=== PATIENT | female | born 1960 | race Caucasian/White ===

== ENCOUNTER → 2020-04-14 | Outpatient (CLI) | payer BC, OTHER ==
[~2020-04-14] MED LIST: LEVO25TA2 PO; THYR15TA PO
[2020-04-14 14:52] LABS: BASOPHILS % (AUTO) 0 % (0-1); EOSINOPHILS % (AUTO) 2 % (1-7); LYMPHOCYTES % (AUTO) 28 % (22-44); MEAN CORPUSCULAR HEMOGLOBIN 31.9 pg (27.0-34.8); MEAN CORPUSCULAR HGB CONC 33.3 g/dL (32.4-35.8); MONOCYTES % (AUTO) 8 % (2-9); NEUTROPHILS % (AUTO) 62 % (42-75); PLATELET COUNT 148 x10^3/uL (130-400); RED BLOOD COUNT 4.63 x10^6/uL (3.82-5.3); RED CELL DISTRIBUTION WIDTH 12.5 % (9.6-15.2)
[2020-04-14 14:54] LABS: MD NO
[2020-04-14 15:01] LABS: INTERNATIONAL NORMALIZED RATIO 0.96 (0.93-1.1); PROTHROMBIN TIME 10.2 Seconds (9.6-11.5)
[2020-04-14 15:02] LABS: CHLORIDE 107 mmol/L (98-107)
[2020-04-14 15:06] LABS: ALANINE AMINOTRANSFERASE 27 U/L (12-78); ALBUMIN 3.7 g/dL (3.4-5.0); ALKALINE PHOSPHATASE 87 U/L (45-117); ANION GAP 5 mmol/L (5-15); BILIRUBIN,TOTAL 0.5 mg/dL (0.2-1.0); CALCIUM 9.1 mg/dL (8.5-10.1); CREATININE 0.64 mg/dL (0.55-1.02); TOTAL PROTEIN 7.3 g/dL (6.4-8.2)
[2020-04-14 15:12] LABS: MICROSCOPIC AUTO
== END | disposition home or self-care (01) ==
LOC: STAR 13:07
PROVIDERS: ATTEND Orthopaedic Surgery Orthopaedic Surgery of the Spine
DX: Z01.818 Encounter for other preprocedural examination (principal); M48.02 Spinal stenosis, cervical region; I44.4 Left anterior fascicular block
CPT/HCPCS: 36415; 71046; 80053; 81001; 85025; 85610; 85730; 87086; 93005

== ENCOUNTER → 2020-04-17 | Outpatient (CLI) | payer BC | END | disposition home or self-care (01) | LOC: STAR 09:43 | PROVIDERS: ATTEND Anesthesiology | DX: Z01.812 Encounter for preprocedural laboratory examination (principal); Z20.828 Contact with and (suspected) exposure to other viral communicable diseases | CPT/HCPCS: 36415; 87635 ==

== ENCOUNTER 2020-04-22 07:50 | Inpatient (IN) | payer BC, OTHER ==
[~2020-04-22] VITALS: Ht 165.1 cm; Wt 82.4 kg
[~2020-04-22 07:50] MED LIST changes: +BACITRACIN 50,000 UNIT ONE; +BUPIVACAINE/PF 0.25% ONE; +EPINEPHRINE 1 MG/ML, 1ML ONE; +LIDOCAINE/PF 0.5% ,50ML ONE; +VANCOMYCIN 1,000 MG ONE
[2020-04-22] MEDS ORDERED: CHLORHEXIDINE 15 ML UDC ONE (08:41)
[2020-04-22] MEDS ORDERED: CHLORHEXIDINE 15 ML UDC MM ONE (09:00)
[2020-04-22] MEDS ORDERED: LACTATED RINGERS 1,000 ML IV SCH (09:00)
[2020-04-22] MEDS ORDERED: BUPIVACAINE/PF 0.25% ONE (09:49)
[2020-04-22] MEDS ORDERED: MIDAZOLAM 1 MG/ML, 2ML ONE (09:55)
[2020-04-22] MEDS ORDERED: PROPOFOL 50 ML ONE (09:56)
[2020-04-22] MEDS ORDERED: FENTANYL PF 250 MCG/5ML ONE (09:56)
[2020-04-22] MEDS ORDERED: SUCCINYLCHOLINE 20 MG/ML, 10ML ONE (10:24)
[2020-04-22] MEDS ORDERED: CEFAZOLIN 1,000 MG ONE (10:24)
[2020-04-22] MEDS ORDERED: ROCURONIUM 10 MG/ML,10ML ONE (10:24)
[2020-04-22] MEDS ORDERED: DEXAMETHASONE 4 MG/ML, 5ML ONE (10:24)
[2020-04-22] MEDS ORDERED: ONDANSETRON 2MG/ML, 2ML ONE (10:24)
[2020-04-22] MEDS ORDERED: PROPOFOL 100 ML ONE (10:57)
[2020-04-22] MEDS ORDERED: MEPERIDINE/PF 25MG/0.5ML IVPush PRN (12:30)
[2020-04-22] MEDS ORDERED: EPHEDRINE 50 MG/ML, 1ML IVPush PRN (12:30)
[2020-04-22] MEDS ORDERED: DIPHENHYDRAMINE 50 MG/ML, 1ML IVPush PRN ×2 (12:30→15:30)
[2020-04-22] MEDS ORDERED: ONDANSETRON 2MG/ML, 2ML IVPush PRN (12:30)
[2020-04-22] MEDS ORDERED: LABETALOL 5MG/ML, 20ML IV PRN (12:30)
[2020-04-22] MEDS ORDERED: PROMETHAZINE 12.5 MG SUPP PR PRN (12:30)
[2020-04-22] MEDS ORDERED: OXYcodone 5 MG/5 ML ORAL.SOL UDC PO PRN (12:30)
[2020-04-22] MEDS ORDERED: EPHEDRINE 50 MG/ML, 1ML IM PRN (12:30)
[2020-04-22] MEDS ORDERED: PROMETHAZINE 25 MG/ML, 1ML IVPush PRN (12:30)
[2020-04-22] MEDS ORDERED: HYDROmorphone 1 MG/ML, 1ML INJ IVPush PRN (12:30)
[2020-04-22] MEDS ORDERED: DIAZEPAM 5 MG/ML, 2ML IVPush PRN (12:30)
[2020-04-22] MEDS ORDERED: FENTANYL PF 100 MCG/2ML ONE (13:06)
[2020-04-22] MEDS ORDERED: OXYcodone 5 MG/5 ML ORAL.SOL UDC ONE (13:06)
[2020-04-22] MEDS ORDERED: ACETAMINOPHEN 650 MG/20.3 ML UDC ONE (13:08)
[2020-04-22] MEDS: FENTANYL PF 100 MCG/2ML IV PRN ×2 (13:10→13:15)
[2020-04-22] MEDS ORDERED: DIAZEPAM 5 MG/ML, 2ML ONE (13:27)
[2020-04-22] MEDS ORDERED: ACETAMINOPHEN 325 MG TABLET PO PRN (13:30)
[2020-04-22] MEDS ORDERED: METHOCARBAMOL 1,000 MG in DEXTROSE 5% 100 ML IV ONE (13:30)
[2020-04-22] MEDS ORDERED: METHOCARBAMOL 750 MG TABLET PO PRN (15:30)
[2020-04-22] MEDS ORDERED: DIPHENHYDRAMINE 50 MG/ML, 1ML IM PRN (15:30)
[2020-04-22] MEDS ORDERED: ONDANSETRON 2MG/ML, 2ML IV PRN (15:30)
[2020-04-22] MEDS ORDERED: HYDROcodone/APAP 10/325 MG TABLET PO PRN (15:30)
[2020-04-22] MEDS ORDERED: BISACODYL 10 MG SUPP PR PRN (15:30)
[2020-04-22] MEDS ORDERED: MAGNESIUM HYDROXIDE 8%, 30ML UDC PO PRN (15:30)
[2020-04-22] MEDS ORDERED: SODIUM CHLORIDE 0.9% 1,000ML IV PRN (15:30)
[2020-04-22] MEDS ORDERED: PROMETHAZINE 25 MG/ML, 1ML IM PRN (15:30)
[2020-04-22] MEDS ORDERED: DIPHENHYDRAMINE 25 MG CAPSULE PO PRN (15:30)
[2020-04-22] MEDS ORDERED: morphine SULFATE 10 MG/ML, 1ML IV PRN (15:30)
[2020-04-22] MEDS: CEFAZOLIN PMX 1GM/50ML 50 ML IVPB SCH (17:41)
[2020-04-22] MEDS: D5%-0.9% NACL+KCL 20MEQ 1,000 ML IV SCH (17:41)
[2020-04-22 21:00] VITALS: BP 137/7
[2020-04-22] MEDS ORDERED: THYROID 30 MG TABLET PO SCH (21:00)
[2020-04-22] MEDS: SENNA/DOCUSATE TABLET PO SCH ×2 (21:02→21:03)
[2020-04-22] MEDS: HYDROcodone/APAP 5/325 TABLET PO PRN (21:02)
[2020-04-23 01:05] VITALS: BP 130/86
[2020-04-23] MEDS: CEFAZOLIN PMX 1GM/50ML 50 ML IVPB SCH (02:49)
[2020-04-23] MEDS: HYDROcodone/APAP 5/325 TABLET PO PRN ×3 (02:49→14:46)
[2020-04-23] MEDS: D5%-0.9% NACL+KCL 20MEQ 1,000 ML IV SCH (04:00)
[2020-04-23 04:55] VITALS: BP 137/85
[2020-04-23] MEDS ORDERED: LEVOTHYROXINE 25 MCG TABLET PO SCH (06:00)
[2020-04-23] MEDS ORDERED: THYROID 30 MG TABLET PO SCH (06:00)
[2020-04-23 07:20] VITALS: BP 125/76
[2020-04-23 14:05] VITALS: BP 146/88
[2020-04-23] MEDS ORDERED: HYDR-3246 PO (14:28)
== END 2020-04-23 15:07 | disposition home or self-care (01) | DRG 473 ==
LOC: ORIP 08:02 → 2NW 14:54
PROVIDERS: ADMIT Orthopaedic Surgery Orthopaedic Surgery of the Spine; ATTEND Orthopaedic Surgery Orthopaedic Surgery of the Spine
PROC: 0RB30ZZ Excision of Cervical Vertebral Disc, Open Approach (ICD-10-PCS; 2020-04-22)
PROC: 01N10ZZ Release Cervical Nerve, Open Approach (ICD-10-PCS; 2020-04-22)
PROC: 0RG10A0 Fusion of Cervical Vertebral Joint with Interbody Fusion Device, Anterior Approach, Anterior Column, Open Approach (ICD-10-PCS; principal; 2020-04-22 10:00)
DX: M50.223 Other cervical disc displacement at C6-C7 level (principal); M54.12 Radiculopathy, cervical region
CPT/HCPCS: 72040; 95938; 95941; C1713; G0378; J0171; J0690; J1100; J2001; J2250; J2405; J2704; J3010; J3360; J3370; C1762; C1889; J0330; J2800; J3480; J7120